=== PATIENT | male | born 1975 | race Caucasian/White ===

== ENCOUNTER 2022-10-14 14:43 | Outpatient (CLI) | payer OTHER, SELFPAY ==
--- NOTE | 2022-10-14 15:03 | ECG_ITS ---
Measurements Intervals [place] Rate: 95 P: 69 WA: 153 QRS: -2 QRSD: 100 T: 63 QT: 327 QTc: 411 Interpretive Statements SINUS RHYTHM MINIMAL Q WAVES- HIGH LATERAL LEADS BASELINE ARTIFACT- AVR, AVL, AVF, V1-V3 BORDERLINE ECG NO PREVIOUS ECG AVAILABLE FOR COMPARISON Electronically Signed On 10-14-2022 16:01:30 [employer]SE HAND[employer]ER by Jose Luis Talbot D.O.
== END 2022-10-14 14:44 | disposition home or self-care (01) ==
PROVIDERS: PCP Internal Medicine; Visit Provider Neurological Surgery
DX: M47.812 Spondylosis without myelopathy or radiculopathy, cervical region (principal); I10 Essential (primary) hypertension; Z01.818 Encounter for other preprocedural examination
CPT/HCPCS: 36415; 86850; 86900; 86901; 93005

== ENCOUNTER 2022-10-20 01:15 | Day surgery (SDC) | payer OTHER, SELFPAY ==
[2022-10-09 10:33] VITALS: BMI 35.4
--- NOTE | 2022-10-09 10:38 | PC.NURSE ---
Report to the Outpatient Waiting Room, entrance under the green pavilion located off [facility], at time 6:00 on date 10/20/22. Planned Procedure Time: 7:30. Time changes happen often and if your time is changed the preop area will call you the afternoon before. - You and your visitor will be asked to self-screen and do not enter if you have any COVID symptoms. - Only one visitor is requested with a max of two and NO children visitors are allowed at this time. - The patient visitor may be requested to leave or wait in car when not with patient due to distancing restrictions. - A mask is REQUIRED within the hospital. Patients may have clear liquids (water, carbonated beverages, clear teas, apple juice) until 3 hours prior to surgery (4:30) with a maximum of 20 ounces. - No food from midnight until time of surgery Take the following medications with a SIP of water the morning of surgery: XANAX IF NEEDED Medications to discontinue per physician: N/A Date to take last dose: N/A Please no make-up, nail tuvaluan, hairspray, perfume, deodorant, or body powder the day of surgery. No jewelry (including any body piercings) or valuables the day of surgery, leave them at home. Please take a shower or bath the night before, or the morning of, surgery with an antibacterial soap. Wear comfortable, loose fitting clothing. - Jewelry must be removed prior to entering the operating room. Rings and piercings that are not removed may be cut off. - The hospital will not accept responsibility for valuables. - Please leave all valuables, including medications, at home the day of surgery. If you are going home after surgery, a licensed chuck wagon driver must drive you home. - NO public transportation without another adult if you receive anesthesia. - We recommend that an adult stay with you for 24 hours following discharge. - We also recommend that you do not drive, make important decision, drink alcoholic beverages, or take any drugs that were not prescribed by your health care provider for at least 24 hours after your discharge time. Follow any additional instructions given to you from your surgeon. If you or anyone in your household have experienced Covid symptoms in the past week, please notify your surgeon or the nurse liaison at the phone number below for possible testing. Telephone instructions given to PT - FARZANA LANG and asked if any additional questions and then verbalized understanding. Patient advised to call surgeon office or pre surgery nurse liaison [phone] if any additional questions.
[2022-10-20] VITALS (10 sets, daily range): BP systolic 136–159; BP diastolic 87–103; PULSE 68–95; RESP 12–16; TEMP 36.4–36.6; O2SAT 97–100
--- NOTE | ~2022-10-20 | XR_ITS ---
XR fluoroscopy no charge DATE: 10/20/2022 09:15 INDICATION: C4-5 surgery TECHNIQUE: 3 spot C-arm lateral views of the cervical spine 10.9 seconds fluoroscopy time 2.59 mGy COMPARISON: None FINDINGS: Initial radiograph reveals a radiopaque device superimposing the C4-5 interspace for approp riate disc space localization. Subsequent radiographs reveal anterior plate and screws and interbody disc replacement at C4-5. No prevertebral soft tissue swelling is detected. IMPRESSION: Status post anterior and interbody spinal fusion at C4-5 Reviewed, dictated and finalized at Location A. Reviewed, dictated and finalized at location L. CAPPER
--- NOTE | 2022-10-20 06:49 | WPDANESEPPF ---
Anes - Initial Pre Proc Eval Procedure: Operation Date: 10/20/22 07:30 Proposed Procedures p C4-5 Anterior Cervical Discectomy Fusion - Andrea iM MD Date/Time: 10/20/22 06:49 Surgeon: Andrea Mi MD Pre Op Diagnosis: c4-5 herniated disc Patient Data Age: 46 Gender: M Height: 1.78 m Weight: 112 kg Allergies Allergy/AdvReac Type Severity Reaction Status Date / Time No Known Allergies Allergy Verified 10/09/22 10:32 Home Medications Medication Instructions Recorded Confirmed Type alprazolam 1 mg tablet 1 mg PO TID PRN Anxiety 09/21/22 10/09/22 History lisinopril 20 mg tablet 20 mg PO DAILY 09/21/22 10/09/22 History sildenafil 25 mg tablet 25 mg PO DAILY PRN Sexual Activity 09/21/22 10/09/22 History simvastatin 20 mg tablet 20 mg PO DAILY 09/21/22 10/09/22 History Patient hx anesthesia problems: none Family hx anesthesia problems: none Results Review: All pre-operative results and documents have been reviewed as part of the pre-operative evaluation. [facility] Past Medical History Medical History (Updated 10/20/22 @ 06:53 by Mati Cordoba DO) Anxiety High cholesterol Hypertension Sleep apnea patient denies Surgical History Surgical History Right carpal tunnel syndrome Family History Family History Other Diabetes mellitus Heart disease Hypertension Social History Social History Smoking packs per day: 1.25 Smoking cigarettes per day: 25.0 Years smoked: 20 Smoking pack-years: 25.00 Smoking status: Current every day smoker Tobacco type: cigarettes Alcohol intake: current Drinks per week: 10 Substance use: never Substance use type: does not use Lack of Transportation: No Lack of Food: Never True Current Housing: I Have Housing Concerned About Future Housing: No Difficulty Paying Gas/Electric Bills: No Difficulty Paying for Meds: No Currently Unemployed: No Education: High School Diploma/GED Difficulty w/ Childcare or Family Care: No Living arrangements: with family Additional living arrangements comments: GIRLFRIEND Gender identity (if verbalized by the patient): Male Spiritual care concerns: No Anes - Eval Final PreProcedure Day of Procedure 10/20/22 06:49 Patient weight: obese Heart: regular rate and rhythm Lungs: clear to auscultation Airway: Mallampati scale class III Neurological: alert and oriented Last oral intake: >/= 8 hours ASA classification: III Emergent: no Anesthetic plan: proceed Anesthesia type and monitoring: general ETT and standard monitoring Results Review: All pre-operative results and documents have been reviewed as part of the pre-operative evaluation. Informed Consent: The patient's anesthetic plan and its attendant risks and benefits were discussed with the patient/family/POA. Questions were solicited and answers provided to the satisfaction of the patient/family/POA.
[2022-10-20] MEDS: LACTATED RINGERS 1,000 ML 30 ML IV CONT ×2 (07:00→09:21)
--- NOTE | 2022-10-20 07:39 | WPDHPUPDATE1 ---
History and Physical Update Update Date/Time: 10/20/22 07:39 History and Physical has been reviewed, including an updated exam of the patient. There are NO changes in the patient's condition. Risks, benefits, and alternatives have been discussed and questions answered. Patient agrees to proceed with procedure.
[2022-10-20] MEDS: ceFAZolin 2 GM/D5W 50 ML 2 GM/50 ML BAG IVPB (07:42)
--- NOTE | 2022-10-20 10:01 | SUR.PHASEI ---
1000 DR REYNA AWARE OF BP 148/103 & HR 73- NO ORDERS TO TREAT AT THIS TIME. ENCOURAGE PATIENT WHEN HE GETS HOME TO TAKE HIS LISINOPRIL SCHEDULED.
[2022-10-20] MEDS: oxyCODONE HCL (*CRX) 5 MG TAB IR PO (10:53)
--- NOTE | 2022-10-27 10:11 | W.PM.PROC2 ---
Procedure Note - Detailed Date of Procedure 10/27/22 Pre-op Diagnosis c4-5 herniated disc Post-op Diagnosis Same Procedure Performed C4-5 complete diskectomy and bilateral neural foraminotomy, C4-5 interbody arthrodesis utilizing peek interbody device and local autograft and I factor, C4-5 anterior cervical plating with locking plate and screws Surgeon Andrea Mi MD Anesthesia General Indications Manuel is a 46-year-old gentleman with neck and arm pain related to the above pathology presents for anterior cervical diskectomy and fusion C4-5. Description of Procedure Manuel was brought to the operating room in the supine position, sedated, intubated and placed under general anesthesia in routine fashion. the area of operation on the right side of the neck was examined, marked for incision, prepped and draped in routine sterile fashion. Incision was marked from the midline over the medial aspect of the sternocleidomastoid muscle and curvilinear transverse fashion 2 fingerbreadths above the sternal notch. This area was injected with 0.5% lidocaine with [id number] epinephrine. Intravenous antibiotics given prior to incision. Incision was made with a 10 blade scalpel down to the platysma muscle. The skin was undermined the platysma muscle was divided longitudinally with its fibers using Metzenbaum scissors. A plane was then dissected medial to the sternocleidomastoid muscle down to the anterior aspect of spine using the finger Metzenbaum scissors. A verifying x-rays obtained to verify the level of operation. At the C4-5 level the longus colli muscle was dissected free of the anterior aspect of spine using Bovie cautery. A Shadow Line retractor system was placed. Micah pins were placed in C4 and C5 and distraction placed over the disc space. Under microscopy the disc space was entered using a 15 blade scalpel cutting along the margin of the bone above and below. A curved curette pituitary rongeur were used to remove as much cartilaginous endplate and disc material as possible down to the annulus and ligament posteriorly. A Midas Gerry drill was used to bur down the endplates to bleeding cortical flat surfaces as well as to begin a bony foraminotomy bilaterally. A curved curette and nerve hook were used to come through the annulus and ligament. 2. Kerrison punch was used to remove annulus, ligament and posterior osteophyte until a bony foraminotomy was completed bilaterally. Disc herniation was removed. These maneuvers were performed until a nerve hook could be placed out each foramen to confirm lack of compression. The disc space was then sized an appropriately sized interbody device was chosen and filled with local autograft bone, I factor. The device was then tamped into the interspace to a 1-2 mm countersink. Micah pins were removed. An anterior cervical plate was chosen placed in position and secured using 414 x 4 mm anterior screws advance into the locking mechanism of the plate to hand tightness. The locking mechanism was then engaged at each screw. A verifying x-rays obtained to verify good position of the instrumentation which was confirmed. The wound was then copiously irrigated with bacitracin irrigation all bleeding stopped with bipolar and Bovie cautery and Gelfoam thrombin powder. The wound was then closed in layered fashion with 3-0 Vicryl interrupted sutures in the platysma muscle and dermis. The skin was closed with a running 4-0 Monocryl subcuticular stitch and dressed with Dermabond. The patient was then allowed to wake up in the operating room and was taken to the recovery room in stable condition. There were no immediate complications of this operation. All counts were reported correct at the end of the case. Blood loss was 25 cc. The patient was neurologically at his baseline postoperatively. Implants Titanium anterior cervical plate and screws, peek interbody device Estimated Blood Loss 25 IV Fluids 1,000 Co
== END 2022-10-20 13:05 | disposition home or self-care (01) ==
PROVIDERS: PCP Internal Medicine; Visit Provider Neurological Surgery
PROC: (CPT 63030; principal; 2022-10-20 07:30)
DX: M50.221 Other cervical disc displacement at C4-C5 level (principal); I10 Essential (primary) hypertension; E78.00 Pure hypercholesterolemia, unspecified; F41.9 Anxiety disorder, unspecified; F17.210 Nicotine dependence, cigarettes, uncomplicated; E66.9 Obesity, unspecified; Z68.34 Body mass index [BMI] 34.0-34.9, adult
CPT/HCPCS: 22551; 22853; 20936; 36415; 86850; 86900; 86901; 93005; 99199; A9270; C1713; J0690; J1100; J1170; J2250; J2405; J2704; J2710; J3010; J7120

== ENCOUNTER 2022-11-30 12:59 | Outpatient (CLI) | payer OTHER, SELFPAY ==
--- NOTE | ~2022-11-30 | XR_ITS ---
XR_[id number] 11/30/2022 13:20 Indication: Cervical spondylosis Procedure: 2 views cervical spine Comparison: No prior studies for comparison. Findings: There is a prosthetic disc device at C4-5 with anterior cervical fusion at this level. Pedi bernard screws intact.Lung apices are normal. Odontoid process is normal. No prevertebral soft tissue swe lling. Vertebral body heights are maintained. The remainder of the cervical disc levels are maintaine d. Impression: 1: Status post anterior cervical fusion and discectomy at C4-5. Otherwise, no significant abnormality of the cervical spine. Reviewed, dictated and finalized at location B. L [employer] Impression: 1: Status post anterior cervical fusion and discectomy at C4-5. Otherwise, no s ignificant abnormality of the cervical spine.
== END 2022-11-30 13:00 | disposition home or self-care (01) ==
LOC: ANHIMG 13:02
PROVIDERS: PCP Internal Medicine; Visit Provider Neurological Surgery
DX: M47.812 Spondylosis without myelopathy or radiculopathy, cervical region (principal); Z98.1 Arthrodesis status
CPT/HCPCS: 72040

== ENCOUNTER 2023-07-01 14:35 | Emergency (ER) | payer OTHER, SELFPAY ==
--- NOTE | ~2023-07-01 | CT_ITS ---
EXAMINATION: CT lumbar spine wo con DATE: 07/01/2023 16:42 INDICATION: Low back pain TECHNIQUE: Computed tomography (CT) of the lumbar spine was performed without intravenous contrast. T he dose-length product (DLP) was 1259.97 mGy-cm. Iterative reconstruction was used. COMPARISON: None FINDINGS: Bone alignment is normal. There is no fracture. There is mild loss of intervertebral disc s pace height at L5-S1. The vertebral body heights are maintained. There is mild facet joint osteoarthr itis of the lower lumbar spine. IMPRESSION: 1. Mild lumbar spondylosis without acute findings. Reviewed, dictated and finalized at location F.
[2023-07-01 14:55] VITALS: BP 142/97; PULSE 97; RESP 16; TEMP 36.4; O2SAT 99
[2023-07-01] MEDS: KETOROLAC 30 MG/ML VIAL (*BKC) IM (16:09)
[2023-07-01] MEDS: diazePAM (*CRX) 5 MG TABLET PO (16:09)
--- NOTE | 2023-07-01 17:49 | ED.GENADULT ---
HPI - General Adult General Chief complaint: Extremity Problem,Nontraumatic Stated complaint: R LEG PAIN RADIATING DOWN LEG XWKS Time Seen by Provider: 07/01/23 15:29 History of Present Illness HPI narrative: Manuel Santos is a 47 y/o male who presents with reports pain to right buttock that radiates down right leg for 2 weeks. He states that he follows with neurosurgery out pt for his chronic neck pain that he had surgery on a few years ago. He denies any trauma/ known injury/ fever/chills/ no abdominal pain/ nausea/vomiting/ Denies numbness to his extremities, denies loss of bowel or bladder Related Data Home Medications Medication Instructions Recorded Confirmed alprazolam 1 mg tablet 1 mg PO TID PRN Anxiety 09/21/22 10/20/22 lisinopril 20 mg tablet 20 mg PO DAILY 09/21/22 10/09/22 sildenafil 25 mg tablet 25 mg PO DAILY PRN Sexual Activity 09/21/22 10/09/22 simvastatin 20 mg tablet 20 mg PO DAILY 09/21/22 10/09/22 Allergies Allergy/AdvReac Type Severity Reaction Status Date / Time No Known Allergies Allergy Verified 07/01/23 15:19 Review of Systems Review of Systems: CONSTITUTIONAL: Denies fever, chills, or sweats. EYES: Denies visual changes, redness, or discharge. ENT: Denies rhinorrhea, congestion, sore throat, or otalgia. CARDIOVASCULAR: Denies chest pain, palpitations, or edema. RESPIRATORY: Denies cough or dyspnea. GASTROINTESTINAL: Denies abdominal pain, nausea, vomiting, or diarrhea. GENITOURINARY: Denies dysuria or hematuria. SKIN: Denies rash or itching. MUSCULOSKELETAL: Denies back pain, reports pain from right buttock down his right leg for 2 weeks NEUROLOGIC: Denies headache, numbness, dizziness, or weakness. PSYCHIATRIC: Denies anxiety or depression. [facility] Past Medical History Medical History Anxiety High cholesterol Hypertension Sleep apnea patient denies Surgical History Surgical History Right carpal tunnel syndrome Family History Family History Other Diabetes mellitus Heart disease Hypertension Social History Social History Smoking packs per day: 1.25 Smoking cigarettes per day: 25.0 Years smoked: 20 Smoking pack-years: 25.00 Smoking status: Current every day smoker Tobacco type: cigarettes Alcohol intake: current Drinks per week: 10 Substance use: never Substance use type: does not use Lack of Transportation: No Lack of Food: Never True Current Housing: I Have Housing Concerned About Future Housing: No Difficulty Paying Gas/Electric Bills: No Difficulty Paying for Meds: No Currently Unemployed: No Education: High School Diploma/GED Difficulty w/ Childcare or Family Care: No Living arrangements: with family Additional living arrangements comments: GIRLFRIEND Occupation/Education: occupation Gender identity (if verbalized by the patient): Male Sexual Orientation (if Verbalized by the Patient): Straight or Heterosexual Spiritual care concerns: No Exam Narrative: GENERAL: Well-appearing, well-nourished, and in no acute distress. HEAD: Normocephalic, atraumatic. EYES: PERRLA and EOMI. ENT: Nares clear, no rhinorrhea or epistaxis. Mucous membranes moist. Oropharynx without tonsillar hypertrophy exudate or other lesions. NECK: Supple. No adenopathy or masses. No carotid bruits or JVD CHEST: Clear to auscultation. No respiratory distress. No wheezes rales or rhonchi HEART: Regular rate and rhythm. No murmur heard. Normal peripheral pulses. ABDOMEN: Soft, nontender, nondistended, normal active bowel sounds. EXTREMITIES: Normal range of motion. No edema. SKIN: Warm, dry, no rash. NEURO: No focal deficits. Alert and oriented x3. PSYCH: Normal mood and affect. Course Vital Signs Vital signs: Marjorie
[2023-07-01 17:58] VITALS: BP 139/92; PULSE 83; RESP 17; O2SAT 99
== END 2023-07-01 18:00 | disposition home or self-care (01) ==
PROVIDERS: Emergency Provider Nurse Practitioner Family; PCP Internal Medicine
DX: M54.31 Sciatica, right side (principal); E78.00 Pure hypercholesterolemia, unspecified; I10 Essential (primary) hypertension; G47.30 Sleep apnea, unspecified; F41.9 Anxiety disorder, unspecified; F17.210 Nicotine dependence, cigarettes, uncomplicated; M47.816 Spondylosis without myelopathy or radiculopathy, lumbar region
CPT/HCPCS: 72131; 96372; 99284; A9270; J1885